=== PATIENT | female | born 1990 ===

== ENCOUNTER 2021-10-21 08:17 | Outpatient (CLI) | payer OTHER | END 2021-10-21 08:20 | disposition home or self-care (01) | LOC: SONOGRAMA 08:17 | PROVIDERS: ATTEND Pathology Anatomic Pathology & Clinical Pathology | DX: E04.2 Nontoxic multinodular goiter (principal) ==

== ENCOUNTER 2024-09-01 14:33 | Outpatient (CLI) | payer OTHER | END 2024-09-01 14:37 | disposition home or self-care (01) | LOC: SONOGRAMA 14:33 | PROVIDERS: ATTEND Pathology Anatomic Pathology & Clinical Pathology | DX: D34 Benign neoplasm of thyroid gland (principal); E06.3 Autoimmune thyroiditis; E04.2 Nontoxic multinodular goiter ==